=== PATIENT | female | born 1975 | race Caucasian/White ===

== ENCOUNTER 2017-02-27 10:26 | Inpatient (IN) ==
[2017-02-27] MEDS ORDERED: NS 1,000 ML IV ONE (11:16)
[2017-02-27] MEDS ORDERED: SALINE FLUSH 10ml SYRINGE IVF PRN (11:16)
[2017-02-27] MEDS ORDERED: PIPERACILLIN/TAZOBACTAM 3.375 GM in NS 100 ML IV ONE (11:18)
--- NOTE | 2017-02-27 11:21 | Emergency Department Report ---
Fever HPI - General Chief Complaint: Fever Stated Complaint: upper respitory issues Time Seen by Provider: 02/27/17 10:45 Source: patient, RN notes reviewed, old records reviewed, other (PCM) Mode of arrival: ambulatory Limitations: no limitations - History of Present Illness HPI Narrative: 41yo woman presents to the ER for evaluation of a fever. Pt had abrupt onset of F/C yesterday. Pt had ureteral stones in Dec 2016; after b/l stents were place, pt developed sepsis with P aeruginosa. Pt was being managed by Dr. Regalado, ID; d/ c'ed cefepime last week. Now pt has sx similar to when she developed sepsis. PCM referred pt to the ER for work up. MD complaint: fever Onset (ago): hour(s) Temperature Source: oral Context: recent procedure, recent antibiotic use Associated symptoms: chills, rigors Relieving factors: nothing Exacerbating factors: nothing Treatments prior to arrival fever: none - Related Data Home Medications Medication Instructions Recorded Confirmed Atorvastatin Calcium 80 mg PO DAILY 01/29/17 02/27/17 Metformin HCl [Metformin HCl ER] 500 mg PO DAILY 01/29/17 02/27/17 Allergies Allergy/AdvReac Type Severity Reaction Status Date / Time ciprofloxacin Allergy Mild Verified 02/27/17 11:36 Review of Systems All systems: reviewed and negative except as stated Constitutional: Reports: as per HPI, fever, chills. Denies: weakness, weight change, night sweats PFSH Patient Stated Medical History Diabetes Mellitus Type 2 Yes: METFORMIN pre diabetic Hx Kidney Stones Yes Hx Urinary Tract Infection Yes Sepsis Yes: possible Blood Transfusions Yes Surgical History: Left nephrostomy 01/24/17 - Dr Taylor. Multiple Lithotripsy and cystocopy procedures. c/s x 2. D&C. Tubal ligation - Social History Smoking status: Never smoker Physical Exam - Limitations Limitations: no limitations - General General appearance: alert, in no apparent distress, obese - Normal Exams: Head:: Normocephalic without trauma Eyes:: Pupils are PERRLA w/ EOMI, No scleral icterus, irritation, or foreign bodies noted ENMT:: No facial trauma, nasal exudates, pharyngeal erythema, or exudates are noted Neck:: Full range of motion, without adenopathy Chest/Respirations:: Clear all arias, with good airflow, and symmetry bilaterally Cardiovascular:: Regular rate and rhythm, without murmur or gallop, Pulses 2+ all extremities, capillary refill, <2 seconds all extremities Abdomen:: Bowel sounds positive, soft, non-tender, non-distended, no hepatosplenomegaly, masses or bruits noted Lymphatic:: No lymphadenopathy Musculoskeletal:: No tenderness, or deformity noted, good range of motion Integumentary:: No rashes, hives, or bruising noted Neurological:: Patient is alert, and oriented Psychiatric:: Patient exhibits, appropriate attention Course - Consultations Consultation #1: Dr. Regalado: Recommend admission for anticipated long course of atbx. May continue zosyn until sensitivities return. Will eval pt and devise course of treatment. Time: 12:05 Consultation #2: Hospitalist: Will admit pt for further treatment. Time: 12:31 Vital Signs Temperature 100.0 F 02/27/17 10:36 Pulse Rate 140 H 02/27/17 10:36 Respiratory Rate 20 02/27/17 10:36 Blood Pressure 135/90 H 02/27/17 10:36 Pulse Oximetry 94 02/27/17 10:36 Temperature 100.0 F 02/27/17 10:36 Pulse Rate 124 H 02/27/17 12:30 Respiratory Rate 32 H 02/27/17 12:30 Blood Pressure 143/88 H 02/27/17 12:30 Pulse Oximetry 92 02/27/17 12:30 Fever - MDM Narrative Medical decision making narrative: Pt with evidence of recurrent UTI/sepsis (but does not meet sepsis criteria). Discussed difficulty of treating pseudomonas and concern for not being able to fluoroquinolones for treatment. Pt to be admitted for continued IV atbx treatment and specialty consultation after failing outpt therapy. - Differential Diagnosis Likely: fever of unknown origin, gastroenteritis, community acquired pneumonia, pyelonephritis, viral infection, sepsis, influenza - Medical Records Attestation: I reviewed the patient's medical records. - Lab Data Attestation: I reviewed the patient's lab results. Result diagrams: 02/27/17 11:31 02/27/17 11:31 Lab Results 02/27/17 02/27/17 02/27/17 Range/Units 10:54 11:31 11:31 WBC 13.7 H (4.5-11.0) T/MM3 RBC 4.77 (4.00-5.20) M/MM3 Hgb 12.1 (12-16) GM/DL Hct 38.7 (36-46) % MCV 81.1 (80-100) UM3 MCH 25.4 L (26-34) UUG MCHC 31.3 (31-37) GM/DL RDW Std Deviation 41.8 (36.9-50.2) FL Plt Count 273 D (130-400) T/MM3 MPV 10.6 (9.4-12.4) UM3 Immature Gran % (Auto) 0.2 (0.0-0.5) % Neut % (Auto) 84.3 H (33-66) % Lymph % (Auto) 8.7 L (23-45) % [place] % (Auto) 6.4 (0-9.0) % Eos % (Auto) 0.0 (0-4) % Baso % (Auto) 0.4 (0-2) % Neut # (Auto) 11.5 H (1.8-7.7) T/MM3 Lymph # (Auto) 1.2 (1-4.8) T/MM3 [place] # (Auto) 0.9 H (0-0.8) T/MM3 Eos # (Auto) 0.0 (0-0.5) T/MM3 Baso # (Auto) 0.1 (0-0.2) T/MM3 Abs Immat Gran (auto) 0.03 (0.00-0.03) T/MM3 Turbidity < 20 (0-20) Sodium 141 (134-144) MEQ/L Potassium 3.4 L (3.6-5) MEQ/L Chloride 101 (98-107) MEQ/L Carbon Dioxide 27 (22-30) MEQ/L Anion Gap 13 (5-15) MEQ/L BUN 11.0 (7-17) MG/DL Creatinine 0.8 (0.7-1.2) MG/DL GFR Calculation 79 BUN/Creatinine Ratio 14 (6-26) RATIO Glucose 122 H (65-110) MG/DL Calculated Osmolality 271 (261-280) MOSM/KG Calcium 9.1 (8.4-10.2) MG/DL Total Bilirubin 1.00 (0.20-1.30) MG/DL Icterus Index < 2 (0-7) AST 22 (14-36) U/L ALT 32 (9-52) U/L Alkaline Phosphatase 100 (38-126) U/L Total Protein 8.1 (6.3-8.2) G/DL Albumin 4.4 (3.5-5.0) G/DL Globulin 3.7 H (2.4-3.6) G/DL Albumin/Globulin Ratio 1.2 (1.1-2.2) RATIO Lipase 81 (23-300) U/L Plasma Lactate 1.4 (0.6-2.2) MMOL/L Specimen Hemolysis < 15 (0-25) Ur Collection Type Urine Color (YELLOW) Urine Clarity Urine pH (5.0-8.0) Ur Specific [place] (1.015-1.025) Urine Protein (NEGATIVE) Urine Glucose (UA) (NEGATIVE) Urine Ketones (NEGATIVE) Urine Occult Blood (NEGATIVE) Urine Nitrate (NEGATIVE) Urine Bilirubin (NEGATIVE) Urine Urobilinogen (NORMAL) EU/DL Ur Leukocyte Esterase (NEGATIVE) Urine RBC (0-3) /HPF Urine WBC (0-5) /HPF Urine WBC Clumps Ur Squamous Epith Cells Urine Bacteria (NEGATIVE) Ur Culture Indicated? Influenza Type A (PCR) Negative (Negative) Influenza Type B (PCR) Negative (Negative) 02/27/17 Range/Units 11:34 WBC (4.5-11.0) T/MM3 RBC (4.00-5.20) M/MM3 Hgb (12-16) GM/DL Hct (36-46) % MCV (80-100) UM3 MCH (26-34) UUG MCHC (31-37) GM/DL RDW Std Deviation (36.9-50.2) FL Plt Count (130-400) T/MM3 MPV (9.4-12.4) UM3 Immature Gran % (Auto) (0.0-0.5) % Neut % (Auto) (33-66) % Lymph % (Auto) (23-45) % [place] % (Auto) (0-9.0) % Eos % (Auto) (0-4) % Baso % (Auto) (0-2) % Neut # (Auto) (1.8-7.7) T/MM3 Lymph # (Auto) (1-4.8) T/MM3 [place] # (Auto) (0-0.8) T/MM3 Eos # (Auto) (0-0.5) T/MM3 Baso # (Auto) (0-0.2) T/MM3 Abs Immat Gran (auto) (0.00-0.03) T/MM3 Turbidity (0-20) Sodium (134-144) MEQ/L Potassium (3.6-5) MEQ/L Chloride (98-107) MEQ/L Carbon Dioxide (22-30) MEQ/L Anion Gap (5-15) MEQ/L BUN (7-17) MG/DL Creatinine (0.7-1.2) MG/DL GFR Calculation BUN/Creatinine Ratio (6-26) RATIO Glucose (65-110) MG/DL Calculated Osmolality (261-280) MOSM/KG Calcium (8.4-10.2) MG/DL Total Bilirubin (0.20-1.30) MG/DL Icterus Index (0-7) AST (14-36) U/L ALT (9-52) U/L Alkaline Phosphatase (38-126) U/L Total Protein (6.3-8.2) G/DL Albumin (3.5-5.0) G/DL Globulin (2.4-3.6) G/DL Albumin/Globulin Ratio (1.1-2.2) RATIO Lipase (23-300) U/L Plasma Lactate (0.6-2.2) MMOL/L Specimen Hemolysis (0-25) Ur Collection Type Urine, void-cc/notcc Urine Color Yellow (YELLOW) Urine Clarity Cloudy Urine pH 7.5 (5.0-8.0) Ur Specific [place] 1.010 L (1.015-1.025) Urine Protein 1+ A (NEGATIVE) Urine Glucose (UA) Negative (NEGATIVE) Urine Ketones Negative (NEGATIVE) Urine Occult Blood 1+ A (NEGATIVE) Urine Nitrate Positive A (NEGATIVE) Urine Bilirubin Negative (NEGATIVE) Urine Urobilinogen 0.2 (NORMAL) EU/DL Ur Leukocyte Esterase 3+ A (NEGATIVE) Urine RBC 0-1 (0-3) /HPF Urine WBC 30-50 H (0-5) /HPF Urine WBC Clumps Moderate H Ur Squamous Epith Cells 10-20 Urine Bacteria 1+ H (NEGATIVE) Ur Culture Indicated? Cult reflexed &setup Influenza Type A (PCR) (Negative) Influenza Type B (PCR) (Negative) - Radiology Data Attestation: I reviewed the patient's radiology results. Disposition Clinical Impression: Pseudomonas urinary tract infection, Pyelonephritis Disposition: 02 To [facility] [place] Language: [place] Condition: Stable Prescriptions: No Action Metformin HCl [Metformin HCl ER] 500 mg PO DAILY Atorvastatin Calcium 80 mg PO DAILY Referrals: Yina Dye MD [Family Provider] - Time of Disposition: 12:59 - Seen By: physician
[2017-02-27] MEDS ORDERED: KETOROLAC 30 MG/ML INJECTION IVP PRN (13:41)
[2017-02-27] MEDS ORDERED: HYDROCODONE/APAP 7.5 MG/325 MG TABLET PO PRN (13:41)
[2017-02-27] MEDS: NS 1,000 ML IV SCH ×2 (13:43→22:54)
[2017-02-27 13:48] VITALS: BMI 35.9
--- NOTE | 2017-02-27 14:19 | History & Physical Report ---
History of Present Illness Date: 02/28/17 Chief complaint: Fever HPI: Pt with recent Pseudomonas UTI has had 4 days F/N malaise and flank pain. Failed outpatient tx with Dr Regalado on cefepime dosages performed at home. Patient reports that she was compliant to her 3 times a day cefepime infusions. States she completed the treatment 1 week ago and 4 days ago started having symptoms can. She did however just pass a pair of kidney stones 2 days ago. Have spoken with Dr. Taylor regarding his patient. Noting that the flank pain is on the left and the obstructing renal stone is nearly at the bladder on the right and is only 3 mm. He has a preference to using antibiotics to quote cooler off "and allow the stone to complete its passage in the next day or 2. Review of Systems All systems PM: 10-point ROS was reviewed, no additional remarkable complaints except - Constitutional Constitutional: Present: as per HPI - Genitourinary Genitourinary: Present: dysuria, flank pain Past Medical History Patient Stated Medical History Diabetes Mellitus Type 2 Yes: METFORMIN pre diabetic Hx Kidney Stones Yes Hx Urinary Tract Infection Yes Sepsis Yes: possible Blood Transfusions Yes Surgical History: Left nephrostomy 01/24/17 - Dr Taylor. Multiple Lithotripsy and cystocopy procedures. c/s x 2. D&C. Tubal ligation Family History Updates: Reviewed and noncontributory - Social History Smoking status: Never smoker Substance use type: does not use Alcohol intake frequency: does not drink Medications Home Medications Medication Instructions Recorded Confirmed Type Atorvastatin Calcium 80 mg PO DAILY 01/29/17 02/27/17 History Metformin HCl [Metformin HCl ER] 500 mg PO DAILY 01/29/17 02/27/17 History Allergies Allergy/AdvReac Type Severity Reaction Status Date / Time ciprofloxacin Allergy Mild Verified 02/27/17 11:36 Exam Vital Signs: Temperature 100.8 F H 02/27/17 13:32 Pulse Rate 112 H 02/27/17 13:32 Respiratory Rate 18 02/27/17 13:32 Blood Pressure 134/80 02/27/17 13:32 Pulse Oximetry 93 02/27/17 13:32 Telemetry Rhythm: Sinus Rhythm Height/Weight/BMI: Height 5 ft 6 in Weight 100.9 kg Body Mass Index 35.9 - Constitutional Present: mild distress, well developed, diaphoretic, cooperative - Routine HEENT Exam Head: Present: normocephalic, atraumatic Eye: Present: EOMI ENT: Present: mucous membranes moist, dentition normal - Routine Respiratory Exam Present: CTA bilaterally. Absent: wheezes - Routine Cardiovascular Exam Present: RRR. Absent: murmur - Routine Abdominal Exam Present: soft, normoactive bowel sounds, non distended. Absent: tenderness - Routine Extremities Exam Present: normal capillary refill - Routine Back/Spine/Pelvis Exam Back/Spine: Present: CVA tenderness - Routine Skin Exam Present: dry, warm - Routine Neurological Exam Present: alert, oriented X3, CN II-XII intact - Routine Psychiatric Exam Present: normal affect Results - Labs CBC & Chem 7: 02/28/17 09:40 02/28/17 09:40 Assessment and Plan (1) Pyelonephritis Current visit: Yes Status: Acute (2) Sepsis Current visit: Yes Status: Acute (3) UTI (urinary tract infection) Current visit: No Status: Acute (4) Pseudomonas urinary tract infection Current visit: Yes Status: Suspected Assessment and Plan: This a 41-year-old woman with a long-standing history of kidney stones and has had a Pseudomonas urinary tract infection with recurrence is likely to the presence of stones in her renal system. She is just completed a course of Cefepime at home infusion and within a week is showing symptoms of recurrence. Due to this we are treating with double IV antibiotics, starting with his zosyn and including gentamicin as well as we have her here in hospital. She meets early criteria for sepsis but does not appear to need fluid resuscitation at this point we're not attempting to fluid overload her. She is making adequate urine already with a single leader of fluids. We will continue fluids and a moderate pace. Should her blood pressure fall will treat this as severe sepsis. I've spoken to her urologist Dr. Taylor the opinion that this small 3 mm stone should have the opportunity to clear without immediate stone retrieval. Failing this, he plans to have one of his partners contacted DISPOSITION: inpatient status for anticipated 2 to 3 days of antibiotics and transition to oral antibiotics on an outpatient basis DVT Prophylaxis: SQ Heparin Resuscitation Status: Full Code - Time spent with patient Time with patient PN: 50 minutes - Physician Narrative Narrative: Date: 02/27/17 Time: 1417 Hospital Course Summary Disclaimer: The visit summary below is not to be considered part of the above Progress Note.
--- NOTE | 2017-02-27 14:34 | XRay Report ---
Indication: Dyspnea XR chest 2V: Comparison: 02/07/2017 Technique: PA and lateral chest Findings: Patient demonstrates similar heart and mediastinum to previous study. No central vascular congestion noted. Lungs showed no new focal parenchymal consolidations. No acute bony findings. Impression: Similar appearance the previous study with no active cardiopulmonary findings. .
--- NOTE | 2017-02-27 14:53 | CT Scan Report ---
Indication: pyelonepritis with possible stone CT renal wo con (stone gertrude): Comparison: CT stone 01/29/17 Technique: Patient scanned from above the diaphragm to below the pubic symphysis utilizing dose reduction imaging technology and with reformatted sagittal and coronal image planes. Findings: Patient demonstrates atelectatic changes in both lung bases. The heart is not enlarged. Liver, spleen, gallbladder, pancreas and adrenal glands are all unremarkable. Patient demonstrates multiple stones in both kidneys. The right kidney is showing more potential obstructive uropathy. Right ureter is moderately prominent down to the pelvis for a small stone is suggested. Although there are multiple stones on the left side left ureter is less prominent. Bladder contour is unremarkable. No free air or free fluid is seen. Reformatted imaging showed no vertebral body fractures or malalignments. Impression: 1. Bilateral nephrocalcinosis with obstructive changes on the right side secondary to a stone the right vesicoureteral junction measuring about 3 mm. 2. No solid viscus organ abnormality. 3. Findings called to the ordering ER clinician when study provided. .
--- NOTE | 2017-02-27 15:36 | Ultrasound Report ---
Indication: pyelonepritis w poss stone US renal BI: Comparison: None Technique: Real-time and color flow imaging provided Findings: Patient demonstrated prominent right kidney measuring 15.3 x 6.6 x 5.9 cm showing mild prominence of the collecting structures. No marked perinephric fluid is identified. Patient showed some potential calcified areas quickly on the right side. No ureteral jets were seen. The left kidney measuring 13.5 x 5.5 x 5.1 cm. It demonstrates a potential calcified regions as well with less prominence of the collecting structures. Again there is no focal fluid collection in the perinephric space. Bladder showed good emptying on the post void study. Impression: 1. There are areas of increased echogenicity in both kidneys which may reflect kidney stones. 2. Right-sided collecting structures were prominent than the left with a fairly prominent right-sided kidney. 3. CT scanning particularly with contrast is sometimes helpful in identifying findings consistent with pyelonephritis. .
[2017-02-27] MEDS: HEPARIN SUB-Q 5,000units/0.5ml INJECTION SQ SCH (16:31)
[2017-02-27] MEDS: PIPERACILLIN/TAZOBACTAM 3.375 GM in NS 100 ML IV SCH ×2 (17:36→22:55)
[2017-02-27] MEDS: GENTAMICIN PB 120 MG/100 ML BAG IV SCH (21:16)
[2017-02-28] MEDS: HEPARIN SUB-Q 5,000units/0.5ml INJECTION SQ SCH ×3 (00:15→19:02)
[2017-02-28] MEDS: GENTAMICIN PB 120 MG/100 ML BAG IV SCH ×3 (04:26→20:43)
[2017-02-28] MEDS: PIPERACILLIN/TAZOBACTAM 3.375 GM in NS 100 ML IV SCH ×4 (05:32→22:59)
[2017-02-28] MEDS: NS 1,000 ML IV SCH (08:33)
[2017-02-28] MEDS ORDERED: GLUCOSE ORAL GEL 40% 37.5gm PO PRN (09:28)
[2017-02-28] MEDS ORDERED: ONDANSETRON 4 MG/2 ML INJECTION IVP PRN (09:29)
--- NOTE | 2017-02-28 09:40 | Progress Note ---
- Date 02/28/17 Subjective: Linda is seen today in follow up for her UTI secondary to pseudomonas. She reports that she is feeling better today. She admits to some chills last night which have resolved today. Review of vital signs reveals fever of 100.5 during the night which has since resolved. She also reports some nausea with decreased appetite. No vomiting since prior to arrival. She denies any chest pain, shortness of breath, abdominal pain, dysuria or hematuria. She states that she has not had a BM since 02/26/17 but admits to passing some gas. She continues on Zosyn for treatment of her UTI. Objective Vital signs: Temperature 98.8 F 02/28/17 07:51 Pulse Rate 110 H 02/28/17 08:00 Respiratory Rate 20 02/28/17 07:51 Blood Pressure 127/77 02/28/17 07:51 Pulse Oximetry 99 02/28/17 07:51 Rhythm: Sinus Tachycardia Height/Weight/BMI: Height 5 ft 6 in Weight 222 lb 3.615 oz Body Mass Index 35.9 Comments: resting in bed, awakens easily with soft voice stimuli. - Constitutional Present: no acute distress, well nourished, well developed, obese, cooperative - Routine HEENT Exam Head: Present: normocephalic, atraumatic Eye: Present: PERRL. Absent: conjunctival icterus ENT: Present: mucous membranes moist - Routine Respiratory Exam Present: CTA bilaterally. Absent: rales, respiratory distress, rhonchi, stridor , wheezes, crackles - Routine Cardiovascular Exam Present: S1, S2, no murmur, tachycardia - Routine Abdominal Exam Present: soft, normoactive bowel sounds, non distended, non tender - Routine Extremities Exam Present: no edema, non tender, full ROM, pulses intact. Absent: calf tenderness - Routine Back/Spine/Pelvis Exam Back/Spine: Present: full ROM. Absent: vertebral tenderness - Routine Musculoskeletal Exam Musculoskeletal: Present: moving extremities well - Routine Skin Exam Present: intact, dry, warm. Absent: jaundice Comments: afebrile - Routine Neurological Exam Present: alert, oriented X3, moving all extremities, normal speech. Absent: facial asymmetry - Routine Lymphatic Exam Lymphatic: Absent: lymphedema - Routine Psychiatric Exam Present: normal affect, cooperative Results - Labs CBC & Chem 7: 03/01/17 04:29 03/01/17 04:29 Assessment and Plan (1) Sepsis Status: Acute (2) Pseudomonas urinary tract infection Status: Acute (3) Pyelonephritis Status: Acute Assessment and Plan: Assessment Sepsis as indicated by fever, leukocytosis, tachycardia, tachypnea. Pyelonephritis secondary to pseudomonas. Diabetes Mellitus Type 2. Kidney stones. Plan - 02/28/17 Continue Zosyn and gentamicin for sepsis secondary to UTI. History of recent pseudomonas in urine, treated with Cefepime. Urine culture and blood culture results pending. Leukocytosis noted on admission (WBC 13.7). No recent labs will recheck CBC and BMP now to assess blood counts, electrolytes and renal function. Serial lactates trending down. Hypokalemia noted on admission with potassium at 3.4. Will change IVF to NS with 20 KCl at 100cc/hr given poor oral intake and to maintain hydration as well as encourage urinary output. Monitor urinary output closely. Continue home medications. Monitor BGMs closely. Sliding scale insulin as indicated for hyperglycemia. Telemetry reveals sinus tachycardia. Continue to monitor closely. Zofran as needed for nausea. Continue pain control. Encourage incentive spirometry for pulmonary toileting. SCDs for DVT prophylaxis. Addendum by Dr. Palacios: Seen and examined patient on same day as the above note. Agree with subjective note, physical exam, assessment and plan. Comprehensive physical findings correlate to the above note. Documented on Dragon speech to text. Efforts to correct speech recognition errors performed, but variation may exist DVT Prophylaxis: SCD's Resuscitation Status: Full Code - Time spent with patient Time with patient PN: 35 minutes - Physician Narrative Physician: other (Dr. Palacios) Narrative: Date: 02/28/17 Time: 09 Hospital Course Summary Disclaimer: The visit summary below is not to be considered part of the above Progress Note. Hospital Course: Plan - 02/28/17 Continue Zosyn and gentamicin for sepsis secondary to UTI. History of recent pseudomonas in urine, treated with Cefepime. Urine culture and blood culture results pending. Leukocytosis noted on admission (WBC 13.7). No recent labs will recheck CBC and BMP now to assess blood counts, electrolytes and renal function. Serial lactates trending down. Hypokalemia noted on admission with potassium at 3.4. Will change IVF to NS with 20 KCl at 100cc/hr given poor oral intake and to maintain hydration as well as encourage urinary output. Monitor urinary output closely. Continue home medications. Monitor BGMs closely. Sliding scale insulin as indicated for hyperglycemia. Telemetry reveals sinus tachycardia. Continue to monitor closely. Zofran as needed for nausea. Continue pain control. Encourage incentive spirometry for pulmonary toileting. SCDs for DVT prophylaxis. Addendum entered and electronically signed by LELA Braga 02/28/17 11: 16: Extensive review of prior medical records indicated that the patient failed outpatient therapy as she had previously been on cefepime as an out patient directed by Dr. Regalado, infectious disease for her current UTI with kidney stone. Will encourage patient to continue to strain urine as she is noted to have a small ureteral stone at the right UVJ. Will obtain KUB in AM to monitor stone progress.
[2017-02-28] MEDS ORDERED: SENNA + DOCUSATE TABLET PO PRN (10:03)
[2017-02-28] MEDS: POLYETHYL GLYCOL 3350 17gm PACKET PO SCH (10:28)
[2017-02-28] MEDS: SENNA + DOCUSATE TABLET PO SCH (10:28)
[2017-02-28] MEDS: NS with KCL 20 mEq 1,000 ML IV SCH (12:31)
[2017-02-28] MEDS: INSULIN ASPART 100unit/ml INJECTION SQ PRN (22:24)
[2017-03-01] MEDS: NS with KCL 20 mEq 1,000 ML IV SCH ×4 (01:03→16:42)
[2017-03-01] MEDS: HEPARIN SUB-Q 5,000units/0.5ml INJECTION SQ SCH ×3 (01:59→16:48)
[2017-03-01] MEDS: GENTAMICIN PB 120 MG/100 ML BAG IV SCH ×3 (04:26→20:56)
[2017-03-01] MEDS: PIPERACILLIN/TAZOBACTAM 3.375 GM in NS 100 ML IV SCH ×4 (05:02→23:33)
[2017-03-01] MEDS: POLYETHYL GLYCOL 3350 17gm PACKET PO SCH (09:04)
[2017-03-01] MEDS: SENNA + DOCUSATE TABLET PO SCH (09:05)
--- NOTE | 2017-03-01 10:38 | XRay Report ---
Indication: right kidney stone PROCEDURE: XR KUB: Encounter: Initial Comparison: 06/17/2013 Findings: There are extensive calcifications over both kidneys, left greater than right. There are some pelvic phleboliths in the right hemipelvis. No definite calcification along the expected tract of the ureter. The included portions of the lung bases are clear. Heart size normal. No pleural effusion. There is scattered gas and stool in the abdomen without evidence of obstruction or free air. No soft tissue mass or organomegaly. No definite bony destructive process. IMPRESSION: No evidence for obstruction or perforation. .
[2017-03-01] MEDS: INSULIN ASPART 100unit/ml INJECTION SQ PRN (11:15)
--- NOTE | 2017-03-01 15:20 | Progress Note ---
- Date 03/01/17 Subjective: Patient seen in room. Resting uncomfortable. Denies fevers chills nausea or flank pain. States that she has been using a hat but has not seen the kidney stone as yet. Objective Vital signs: Temperature 97.7 F 03/01/17 08:00 Pulse Rate 87 03/01/17 08:00 Respiratory Rate 16 03/01/17 08:00 Blood Pressure 120/86 03/01/17 08:00 Pulse Oximetry 92 03/01/17 08:00 Rhythm: Sinus Tachycardia Height/Weight/BMI: Height 5 ft 6 in Weight 99 kg Body Mass Index 35.9 - Constitutional Present: well nourished, well developed - Routine HEENT Exam Eye: Present: EOMI ENT: Present: mucous membranes moist, dentition normal - Routine Respiratory Exam Present: CTA bilaterally. Absent: wheezes - Routine Cardiovascular Exam Present: RRR. Absent: murmur - Routine Abdominal Exam Present: soft, normoactive bowel sounds, non distended. Absent: tenderness - Routine Extremities Exam Present: normal capillary refill - Routine Skin Exam Present: dry, warm - Routine Neurological Exam Present: alert, oriented X3, CN II-XII intact - Routine Lymphatic Exam Lymphatic: Absent: adenopathy - Routine Psychiatric Exam Present: normal affect Results - Labs CBC & Chem 7: 03/01/17 04:29 03/01/17 04:29 Assessment and Plan (1) Pyelonephritis Current visit: Yes Status: Acute (2) Sepsis Current visit: Yes Status: Acute (3) Pseudomonas urinary tract infection Current visit: Yes Status: Acute Assessment and Plan: 03/01/2017 cultures of return positive for thomas susceptible Pseudomonas. She has had no fevers since the 1st night. Continue gentamicin and zosyn at this time. Will discuss discharge medications as patient does have an allergy to ciprofloxacin. I've ordered ultrasound of the right renal pelvis to see if there is still hydronephrosis. If this has improved, is unlikely that any intervention will be required in patient will be able to return home with outpatient therapy DVT Prophylaxis: SQ Heparin Resuscitation Status: Full Code - Time spent with patient Time with patient PN: 35 minutes - Physician Narrative Narrative: Date: 03/01/17 Time: 1516 Hospital Course Summary Disclaimer: The visit summary below is not to be considered part of the above Progress Note. Hospital Course: Plan - 02/28/17 Continue Zosyn and gentamicin for sepsis secondary to UTI. History of recent pseudomonas in urine, treated with Cefepime. Urine culture and blood culture results pending. Leukocytosis noted on admission (WBC 13.7). No recent labs will recheck CBC and BMP now to assess blood counts, electrolytes and renal function. Serial lactates trending down. Hypokalemia noted on admission with potassium at 3.4. Will change IVF to NS with 20 KCl at 100cc/hr given poor oral intake and to maintain hydration as well as encourage urinary output. Monitor urinary output closely. Continue home medications. Monitor BGMs closely. Sliding scale insulin as indicated for hyperglycemia. Telemetry reveals sinus tachycardia. Continue to monitor closely. Zofran as needed for nausea. Continue pain control. Encourage incentive spirometry for pulmonary toileting. SCDs for DVT prophylaxis. 02/27/2017 This a 41-year-old woman with a long-standing history of kidney stones and has had a Pseudomonas urinary tract infection with recurrence is likely to the presence of stones in her renal system. She is just completed a course of Cefepime at home infusion and within a week is showing symptoms of recurrence. Due to this we are treating with double IV antibiotics, starting with his zosyn and including gentamicin as well as we have her here in hospital. She meets early criteria for sepsis but does not appear to need fluid resuscitation at this point we're not attempting to fluid overload her. She is making adequate urine already with a single leader of fluids. We will continue fluids and a moderate pace. Should her blood pressure fall will treat this as severe sepsis. I've spoken to her urologist Dr. Taylor the opinion that this small 3 mm stone should have the opportunity to clear without immediate stone retrieval. Failing this, he plans to have one of his partners contacted DISPOSITION: inpatient status for anticipated 2 to 3 days of antibiotics and transition to oral antibiotics on an outpatient basis
--- NOTE | 2017-03-01 16:42 | Ultrasound Report ---
Indication: Renal stone in UVJ PROCEDURE: US renal RT: Encounter: Initial Comparison: 02/27/2017 Findings: There is moderate right hydronephrosis which appears slightly increased when compared to prior exam. Bilateral ureteral jets are identified but the right ureteral jet is less prominent than the left. The right kidney measures 14.8 cm in length. Impression: Persistent, possibly increased hydronephrosis of the right kidney. Bilateral ureteral jets are identified although the right is decreased compared to the left. .
[2017-03-02] MEDS: NS with KCL 20 mEq 1,000 ML IV SCH ×4 (01:15→23:04)
[2017-03-02] MEDS: HEPARIN SUB-Q 5,000units/0.5ml INJECTION SQ SCH ×3 (01:19→17:37)
[2017-03-02] MEDS: GENTAMICIN PB 120 MG/100 ML BAG IV SCH ×3 (04:38→20:26)
[2017-03-02] MEDS: PIPERACILLIN/TAZOBACTAM 3.375 GM in NS 100 ML IV SCH ×4 (05:45→22:40)
[2017-03-02] MEDS: POLYETHYL GLYCOL 3350 17gm PACKET PO SCH (08:40)
[2017-03-02] MEDS: SENNA + DOCUSATE TABLET PO SCH (08:40)
[2017-03-02] MEDS: INSULIN ASPART 100unit/ml INJECTION SQ PRN (12:17)
--- NOTE | 2017-03-02 19:24 | CT Scan Report ---
EXAM: CT renal wo con (stone gertrude) COMPARISON: 02/27/2017. 06/07/2013. HISTORY: R kidney stone LOCATION OF DICTATION: [facility] – [place] TECHNIQUE: Axial images were obtained from the domes of the diaphragms to the ischial tuberosities without IV contrast. The study was reconstructed into thinner axial sections and in coronal and sagittal reformations. Study is reviewed in lung, soft tissue, bone and liver windows. The current CT scan was performed using radiation dose-reduction techniques. ABDOMEN AND PELVIS FINDINGS: LUNG BASES: Linear opacities seen at the right lung bases likely representing atelectasis, and also seen at the left lung base. HEART: Unremarkable. No significant pericardial effusion. LIVER: Unremarkable. GALLBLADDER: Unremarkable. SPLEEN: Unremarkable. PANCREAS: Unremarkable. ADRENAL GLANDS: Unremarkable. AORTA/IVC/VASCULATURE: Unremarkable. LYMPH NODES: No lymphadenopathy is identified. Small lymph nodes are noted, but are not pathologically enlarged. GENITOURINARY: Innumerable calcific densities are seen within the kidneys at the renal pyramids ranging in size from 2 mm to 1.2 cm. There is interval improvement but residual right pelvocaliectasis. The right ureter remains ectatic to the level of the right ureterovesical junction where there is a 3 mm stone. However it is uncertain whether this is actually in the ureterovesical junction or just posterior to it. Multiple phleboliths are seen in the pelvis. There is mild prominence to the left renal pelvis but is not dilated and is improved compared to the prior exam. The uterus and ovaries appear unremarkable. BOWEL: Unremarkable. The stomach, duodenum, small bowel, and colon appear unremarkable. Scattered diverticula are seen throughout the colon. The terminal ileum and appendix appear unremarkable. ABDOMINAL/PELVIC WALL: Small umbilical defect without herniated loops of bowel. BONES: Mild facets chronic changes are seen of the lower lumbar spine. IMPRESSION: 1. There is interval improvement in the right-sided hydronephrosis and hydroureter to the level of the right ureterovesical junction where there is a 3 mm stone. Although it is uncertain whether the stone is within the right UVJ or just posterior to it. Clinical correlation is suggested. 2. Bilateral abundant nephrocalcinosis again noted. .
--- NOTE | 2017-03-02 21:23 | Progress Note ---
- Date 03/02/17 Subjective: Patient continues to be pain free. Has had no further fevers since the 1st 24 hours. She has yet to pass the renal stone. She is becoming anxious to discharge. Objective Vital signs: Temperature 97.1 F 03/02/17 15:37 Pulse Rate 88 03/02/17 16:00 Respiratory Rate 20 03/02/17 15:37 Blood Pressure 136/95 H 03/02/17 15:37 Pulse Oximetry 94 03/02/17 15:37 Rhythm: Sinus Tachycardia Height/Weight/BMI: Height 5 ft 6 in Weight 98.9 kg Body Mass Index 35.9 - Constitutional Present: well nourished, well developed - Routine HEENT Exam Eye: Present: EOMI ENT: Present: mucous membranes moist, dentition normal - Routine Respiratory Exam Present: CTA bilaterally. Absent: wheezes - Routine Cardiovascular Exam Present: RRR. Absent: murmur - Routine Abdominal Exam Present: soft, normoactive bowel sounds, non distended. Absent: tenderness - Routine Extremities Exam Present: normal capillary refill - Routine Skin Exam Present: dry, warm - Routine Neurological Exam Present: alert, oriented X3, CN II-XII intact - Routine Lymphatic Exam Lymphatic: Absent: adenopathy - Routine Psychiatric Exam Present: normal affect Results - Labs CBC & Chem 7: 03/01/17 04:29 03/01/17 04:29 - Impressions Ultrasound of right renal calyx was inconclusive for resolution of the kidney stone. CT of the abdomen and pelvis was repeated. The right renal calyx appears less distended to my interpretation however I was uncertain if the stones had made sufficient passage down the vesicular ureter junction. I had the readings sent off to virtual radiology with their findings of the images be equally equivocal Assessment and Plan (1) Pyelonephritis Current visit: Yes Status: Acute (2) Sepsis Current visit: Yes Status: Acute (3) Pseudomonas urinary tract infection Current visit: Yes Status: Acute Assessment and Plan: 03/02/2017 blood cultures remain negative at day 3. No further fevers. Continue gentamicin and Zosyn at this time. Case discussed with Dr. Taylor. I appreciate his input. His recommendations of CT review will require in-house radiology's skilled opinion. As for now patient will hold and I will attempt to discharge her tomorrow morning if they find the stones progress sufficiently into the upper portion of the bladder itself. - Physician Narrative Narrative: Date: 03/02/17 Time: 2119 Hospital Course Summary Disclaimer: The visit summary below is not to be considered part of the above Progress Note. Hospital Course: 03/02/2017 blood cultures remain negative at day 3. No further fevers. Continue gentamicin and Zosyn at this time. Case discussed with Dr. Taylor. I appreciate his input. His recommendations of CT review will require in-house radiology's skilled opinion. As for now patient will hold and I will attempt to discharge her tomorrow morning if they find the stones progress sufficiently into the upper portion of the bladder itself. 03/01/2017 cultures of return positive for thomas susceptible Pseudomonas. She has had no fevers since the 1st night. Continue gentamicin and zosyn at this time. Will discuss discharge medications as patient does have an allergy to ciprofloxacin. I've ordered ultrasound of the right renal pelvis to see if there is still hydronephrosis. If this has improved, is unlikely that any intervention will be required in patient will be able to return home with outpatient therapy 02/28/17 Continue Zosyn and gentamicin for sepsis secondary to UTI. History of recent pseudomonas in urine, treated with Cefepime. Urine culture and blood culture results pending. Leukocytosis noted on admission (WBC 13.7). No recent labs will recheck CBC and BMP now to assess blood counts, electrolytes and renal function. Serial lactates trending down. Hypokalemia noted on admission with potassium at 3.4. Will change IVF to NS with 20 KCl at 100cc/hr given poor oral intake and to maintain hydration as well as encourage urinary output. Monitor urinary output closely. Continue home medications. Monitor BGMs closely. Sliding scale insulin as indicated for hyperglycemia. Telemetry reveals sinus tachycardia. Continue to monitor closely. Zofran as needed for nausea. Continue pain control. Encourage incentive spirometry for pulmonary toileting. SCDs for DVT prophylaxis. 02/27/2017 This a 41-year-old woman with a long-standing history of kidney stones and has had a Pseudomonas urinary tract infection with recurrence is likely to the presence of stones in her renal system. She is just completed a course of Cefepime at home infusion and within a week is showing symptoms of recurrence. Due to this we are treating with double IV antibiotics, starting with his zosyn and including gentamicin as well as we have her here in hospital. She meets early criteria for sepsis but does not appear to need fluid resuscitation at this point we're not attempting to fluid overload her. She is making adequate urine already with a single leader of fluids. We will continue fluids and a moderate pace. Should her blood pressure fall will treat this as severe sepsis. I've spoken to her urologist Dr. Taylor the opinion that this small 3 mm stone should have the opportunity to clear without immediate stone retrieval. Failing this, he plans to have one of his partners contacted DISPOSITION: inpatient status for anticipated 2 to 3 days of antibiotics and transition to oral antibiotics on an outpatient basis
[2017-03-03] MEDS: HEPARIN SUB-Q 5,000units/0.5ml INJECTION SQ SCH ×2 (00:35→10:13)
[2017-03-03 00:41] VITALS: RESP 16
[2017-03-03] MEDS: NS with KCL 20 mEq 1,000 ML IV SCH ×4 (03:40→18:53)
[2017-03-03] MEDS: GENTAMICIN PB 120 MG/100 ML BAG IV SCH (03:40)
[2017-03-03] MEDS: PIPERACILLIN/TAZOBACTAM 3.375 GM in NS 100 ML IV SCH (05:30)
--- NOTE | 2017-03-03 08:42 | Infectious Disease Consult ---
Infectious Disease Consult Date of Consultation: 03/03/17 Requesting Physician: Porter Palacios Reason for Consultation: antibiotic recs History of Present Illness: Ms. Terrell is a 41-year-old woman known to me from her recent hospitalization in [place] from February 07 through the with sepsis secondary to urinary tract infection. She had Pseudomonas in her urine culture from February 07 that was a thomas sensitive strain. Her blood cultures were negative. At that time she had bilateral ureteral stents in place and a left percutaneous nephrostomy tube. I saw her initially February 10 and she was discharged home on that day on cefepime 2 g IV every 8 hours through February 21 which completed a two-week course. She reported a history to ciprofloxacin, specifically swelling and itching. I saw her in my office in follow-up and she was clinically doing well. At that time her ureteral stents and percutaneous nephrostomy tube had been removed. She reports that Dr. Taylor was planning to repeat a CT scan in March and he was going to send her to a kidney doctor. She reports that she passed a kidney stone last Monday and then Monday evening started having shaking chills and fever. She saw her primary care doctor on Monday who sent her to the emergency room. She was admitted here. I was called that day by the ER physician and we discussed that due to her Cipro allergy she most likely would need to be admitted. Again her urine culture grew out greater than 100,000 colonies of the same pseudomonas and her blood cultures were negative. She had leukocytosis initially which has improved. She has been on gentamicin and Zosyn. He reports that she did have some nausea and vomiting initially which has now resolved. She is feeling better and hoping to be able to go home soon. She had an influenza screen done on admission which was negative. Chest x-ray did not show any infiltrates. She has had a renal ultrasound and [address] scans this week. The ultrasound showed mildly prominent collecting system on the right and some echogenicities that might reflect stones. The most recent CT was done yesterday which showed some improvement in the right-sided hydronephrosis. There is presumably a 3 mm stone either in the ureterovesicular junction or just posterior to it. There is also bilateral nephrocalcinosis. Medications Home Medications Medication Instructions Recorded Confirmed Type Atorvastatin Calcium 80 mg PO DAILY 01/29/17 02/27/17 History Metformin HCl [Metformin HCl ER] 500 mg PO DAILY 01/29/17 02/27/17 History Allergies Allergy/AdvReac Type Severity Reaction Status Date / Time ciprofloxacin Allergy Mild Verified 02/27/17 11:36 [facility] Patient Stated Medical History Diabetes Mellitus Type 2 Yes: METFORMIN pre diabetic Hx Kidney Stones Yes Hx Urinary Tract Infection Yes Sepsis Yes: possible Blood Transfusions Yes Surgical History: Left nephrostomy 01/24/17 - Dr Taylor. Multiple Lithotripsy and cystocopy procedures. c/s x 2. D&C. Tubal ligation Family History: F - alive. Diabetes M - alive and well No FH of breast or colon cancer or CAD - Social History Smoking status: Never smoker Substance use type: does not use Alcohol intake frequency: does not drink Current occupation: fund accountant in [employer] Review of Systems All systems PM: 10-point ROS was reviewed, no additional remarkable complaints except - Constitutional Constitutional: Present: chills, fever(s). Absent: headache(s) - Gastrointestinal Gastrointestinal: Present: nausea, vomiting - Genitourinary Genitourinary: Absent: dysuria, flank pain - Integumentary/Breasts Integumentary: Absent: rash Exam Vital Signs: Temperature 96.2 F L 03/03/17 07:51 Pulse Rate 90 03/03/17 07:51 Respiratory Rate 16 03/03/17 07:51 Blood Pressure 126/82 03/03/17 07:51 Pulse Oximetry 93 03/03/17 07:51 Height/Weight/BMI: Height 1.68 m Weight 98.7 kg Body Mass Index 35.9 - Constitutional Present: no acute distress, well nourished, well developed - Routine HEENT Exam Head: Present: normocephalic, atraumatic Eye: Present: EOMI, PERRL ENT: Present: mucous membranes moist, oropharynx clear, dentition normal - Routine Neck Exam Present: supple - Routine Respiratory Exam Present: CTA bilaterally - Routine Cardiovascular Exam Present: RRR - Routine Abdominal Exam Present: soft, normoactive bowel sounds, non distended, non tender - Routine Exam Comments: No pollard, no CVA tenderness - Routine Extremities Exam Absent: cyanosis, clubbing, edema - Routine Skin Exam Absent: rash - Routine Neurological Exam Present: alert, oriented X3, CN II-XII intact. Absent: motor deficit - Routine Psychiatric Exam Present: normal affect, normal thought process Results - Labs CBC & Chem 7: 03/01/17 04:29 03/01/17 04:29 Impression: Recurrent sepsis secondary to UTI Complicated UTI, P. aeruginosa (thomas-sensitive) Bilateral nephrolithiasis, s/p lithotripsy/cystoscopy 12/23/16, s/p bilateral ureteral stent placement 12/08/16, s/p L percutaneous nephrostomy tube placement 02/03/[address] Taylor (now stents/tube removed) H/o severe R hydronephrosis on imaging, improving Leukocytosis Prediabetes, on metformin HTN Cipro allergy (itching and swelling) Recommendation: I discussed the possibility of treating her for 4 weeks this time. Ideally, her stones should be removed if possible. She is willing to try cipro. Will give her an antihistamine. If she tolerates this, she could be discharged home. I'll see her in follow up in my office. We can also arrange for Cefepime again if she doesn't tolerate the Cipro.
[2017-03-03] MEDS ORDERED: CIPROFLOXACIN 500 MG TABLET PO SCH (09:00)
[2017-03-03] MEDS ORDERED: CETIRIZINE 10 MG TABLET PO SCH (09:00)
[2017-03-03] MEDS: SENNA + DOCUSATE TABLET PO SCH (10:01)
[2017-03-03] MEDS: POLYETHYL GLYCOL 3350 17gm PACKET PO SCH (10:01)
[2017-03-03 16:56] VITALS: BP 132/96; TEMP 96.9; O2SAT 94
[2017-03-03] MEDS ORDERED: PIPERACILLIN/TAZOBACTAM 3.375 GM in NS 50 ML IV SCH (17:00)
[2017-03-03 18:01] VITALS: PULSE 89
--- NOTE | 2017-03-03 18:45 | Discharge Summary ---
Discharge Information Date of admission: 02/27/17 12:42 Anticipated date of discharge: 03/03/17 Attending Physician: Porter Palacios MD Primary care physician: Yina Dye MD Consults: 03/03/17 07:52 Physician Consult [CONS] Routine Consulting Provider: Dorys Regalado Reason For Exam: sepsis Ordering Provider has Notified Tax Consultant: Yes Comment: already notified - Discharge Diagnosis (1) Pyelonephritis Status: Acute (2) Sepsis Status: Acute (3) Pseudomonas urinary tract infection Status: Acute - Laboratory Labs: 03/01/17 04:29 03/01/17 04:29 History of Present Illness HPI: Pt with recent Pseudomonas UTI has had 4 days F/N malaise and flank pain. Failed outpatient tx with Dr Regalado on cefepime dosages performed at home. Patient reports that she was compliant to her 3 times a day cefepime infusions. States she completed the treatment 1 week ago and 4 days ago started having symptoms can. She did however just pass a pair of kidney stones 2 days ago. Have spoken with Dr. Taylor regarding his patient. Noting that the flank pain is on the left and the obstructing renal stone is nearly at the bladder on the right and is only 3 mm. He has a preference to using antibiotics to quote cooler off "and allow the stone to complete its passage in the next day or 2. Objective Vital signs: Temperature 96.9 F 03/03/17 16:00 Pulse Rate 89 03/03/17 18:00 Respiratory Rate 16 03/03/17 16:00 Blood Pressure 132/96 H 03/03/17 16:00 Pulse Oximetry 94 03/03/17 16:00 Rhythm: Sinus Tachycardia Height/Weight/BMI: Height 5 ft 6 in Weight 98.7 kg Body Mass Index 35.9 - Constitutional Present: well nourished, well developed - Routine HEENT Exam Eye: Present: EOMI ENT: Present: mucous membranes moist, dentition normal - Routine Respiratory Exam Present: CTA bilaterally. Absent: wheezes - Routine Cardiovascular Exam Present: RRR. Absent: murmur - Routine Abdominal Exam Present: soft, normoactive bowel sounds, non distended. Absent: tenderness - Routine Extremities Exam Present: normal capillary refill - Routine Skin Exam Present: dry, warm - Routine Neurological Exam Present: alert, oriented X3, CN II-XII intact - Routine Lymphatic Exam Lymphatic: Absent: adenopathy - Routine Psychiatric Exam Present: normal affect Hospital Course This is a general summary of the patient's hospital course. For more details refer to the complete medical record. Hospital course: 03/03/2017 after unsuccessful tempting to interpret the CT exam independently, I spoke to Dr. Singer and we reviewed the imaging together. It does appear that the right renal calyx has decompressed somewhat. On review of the area of the right uretovesicicular junction, Dr. Stewart believes that this might actually be a calcification within the surrounding tissue and not a persistent stone of the UVJ. Patient was tolerant of ciprofloxacin with the use of [id number] antihistamines and so is discharging on ciprofloxacin 500 mg BID for 7 days. If she is tolerant of this throughout the course of the weekend, she may present to Dr. Dorys Regalado clinic for IV infusions of antibiotics if it some point during the week the side effects become uncomfortable on the ciprofloxacin. 03/02/2017 blood cultures remain negative at day 3. No further fevers. Continue gentamicin and Zosyn at this time. Case discussed with Dr. Taylor. I appreciate his input. His recommendations of CT review will require in-house radiology's skilled opinion. As for now patient will hold and I will attempt to discharge her tomorrow morning if they find the stones progress sufficiently into the upper portion of the bladder itself. 03/01/2017 cultures of return positive for thomas susceptible Pseudomonas. She has had no fevers since the 1st night. Continue gentamicin and zosyn at this time. Will discuss discharge medications as patient does have an allergy to ciprofloxacin. I've ordered ultrasound of the right renal pelvis to see if there is still hydronephrosis. If this has improved, is unlikely that any intervention will be required in patient will be able to return home with outpatient therapy 02/28/17 Continue Zosyn and gentamicin for sepsis secondary to UTI. History of recent pseudomonas in urine, treated with Cefepime. Urine culture and blood culture results pending. Leukocytosis noted on admission (WBC 13.7). No recent labs will recheck CBC and BMP now to assess blood counts, electrolytes and renal function. Serial lactates trending down. Hypokalemia noted on admission with potassium at 3.4. Will change IVF to NS with 20 KCl at 100cc/hr given poor oral intake and to maintain hydration as well as encourage urinary output. Monitor urinary output closely. Continue home medications. Monitor BGMs closely. Sliding scale insulin as indicated for hyperglycemia. Telemetry reveals sinus tachycardia. Continue to monitor closely. Zofran as needed for nausea. Continue pain control. Encourage incentive spirometry for pulmonary toileting. SCDs for DVT prophylaxis. 02/27/2017 This a 41-year-old woman with a long-standing history of kidney stones and has had a Pseudomonas urinary tract infection with recurrence is likely to the presence of stones in her renal system. She is just completed a course of Cefepime at home infusion and within a week is showing symptoms of recurrence. Due to this we are treating with double IV antibiotics, starting with his zosyn and including gentamicin as well as we have her here in hospital. She meets early criteria for sepsis but does not appear to need fluid resuscitation at this point we're not attempting to fluid overload her. She is making adequate urine already with a single leader of fluids. We will continue fluids and a moderate pace. Should her blood pressure fall will treat this as severe sepsis. I've spoken to her urologist Dr. Taylor the opinion that this small 3 mm stone should have the opportunity to clear without immediate stone retrieval. Failing this, he plans to have one of his partners contacted DISPOSITION: inpatient status for anticipated 2 to 3 days of antibiotics and transition to oral antibiotics on an outpatient basis Time spent with patient: discharge greater than 30 minutes Resuscitation Status: Full Code Discharge Plan - Discharge Disposition Disposition: Discharged Home, Self-Care *Condition: Stable Reason For Visit (Visit label in EMR): sepsis,UTI - Discharge Medications *Discharge Medications: New Ciprofloxacin [Cipro] 500 mg PO Q12HR #14 tab Cetirizine [Zyrtec] 10 mg PO DAILY #10 tab Continue Metformin HCl [Metformin HCl ER] 500 mg PO DAILY Atorvastatin Calcium 80 mg PO DAILY - Discharge Packet/Instructions *Diet: Diabetic *Activity: as tolerated *Pain Management/Treatment: Routine *Wound Care: none - Referrals/Follow Up - Patient Handouts Patient Handouts: Urinary Tract Infection in Women (DC) - Dismissal Complete Discharge Instructions are:: Complete Physician Narrative - Narrative Attestation Narrative: Date: 03/03/17 Time: 1841
== END 2017-03-03 19:20 | disposition home or self-care (01) | DRG 872 ==
LOC: ED 10:26 → SRG 12:42
PROVIDERS: ADMIT Family Medicine; ATTEND Family Medicine